=== PATIENT | female | born 1950 | race Caucasian/White ===

== ENCOUNTER 2019-03-12 06:51 | Day surgery (SDC) ==
--- NOTE | 2019-03-05 12:56 | EKG Report ---
Test Performed on : 03/05/2019 12:44:26 PM Test Reason : PAT Blood Pressure : / mmHG Vent. Rate : 083 BPM Atrial Rate : 083 BPM P-R Int : 168 ms QRS Dur : 086 ms QT Int : 390 ms P-R-T Axes : 065 -26 058 degrees QTc Int : 458 ms Sinus rhythm. with occasional premature ventricular complexes. Inferior infarct (cited on or before 27-MAY-2015) Anterior infarct (cited on or before 27-MAY-2015) Abnormal ECG When compared with ECG of 13-JUN-2017 10:43, premature ventricular complexes. are now present Confirmed by Janis Pichardo MD ([id number]) on 03/06/2019 12:02:13 PM
[2019-03-05 13:04] LABS: URINE SOURCE CLEAN CATCH
[2019-03-05 13:10] LABS: BASO# 0.02 X1000 (0.0-0.2); BASO% 0.4 % (0.0-0.8); EOS# 0.07 X1000 (0.0-0.7); EOS% 1.4 % (0.0-10.0); HEMATOCRIT 46.2 % (37.0-47.0); HEMOGLOBIN 14.7 g/dL (12.0-16.0); IMM GRAN# 0.02 X1000 (0.0-0.04); IMM GRAN% 0.4 % (0.0-0.5); LYMPH# 1.55 X1000 (1.2-3.4); LYMPH% 31.6 % (20.5-51.1); MCH 27.3 PG (27-31); MCHC 31.8 g/dL (33-37); MCV 85.7 FL (81-99); MONO# 0.34 X1000 (0.11-0.59); MONO% 6.9 % (1.7-9.3); MPV 9.2 FL (7.4-10.4); NEUT# 2.91 X1000 (1.4-6.5); NEUT% 59.3 % (42.2-75.2); PLT 323 X1000 (130-400); RBC 5.39 XMIL (4.2-5.4); RDW 14.7 % (11.5-14.5); WBC 4.91 X1000 (4.8-10.8)
[2019-03-05 13:11] LABS: BILIRUBIN URINE NEGATIVE (NEGATIVE); BLOOD URINE NEGATIVE (NEGATIVE); COLOR YELLOW; GLUCOSE URINE NEGATIVE (NEGATIVE); KETONE URINE TRACE mg/dL (NEGATIVE); LEUKOCYTES URINE SMALL (NEGATIVE); NITRITE URINE NEGATIVE (NEGATIVE); PH URINE 6.5; PROTEIN URINE NEGATIVE (NEGATIVE); TURBIDITY URINE CLEAR (CLEAR); UROBILINOGEN URINE NORMAL (NORMAL)
[2019-03-05 13:13] LABS: UR EPITHELIAL CELLS <10 /HPF (<10); URINE BACTERIA NEGATIVE /HPF; URINE RBC <10 /HPF (<10); URINE WBC <10 /HPF (<10)
[2019-03-05 13:14] LABS: INR 0.99; PROTIME 13.2 Seconds (11.0-16.0); PTT 24.3 Seconds (22.3-41.8)
[2019-03-05 13:16] LABS: HEMOGLOBIN A1C 5.5 % (4.8-6.0)
[2019-03-05 13:33] LABS: AGAP 13; BUN 16 mg/dL (8-22); CALCIUM 9.6 mg/dL (8.8-10.2); CHLORIDE 103 mmol/L (98-107); COSMO 288; CREATININE 0.8 mg/dL (0.5-0.9); ESTIMATED GFR > 60; GLUCOSE 107 mg/dL (70-104); POTASSIUM 3.9 mmol/L (3.5-5.1); SODIUM 144 mmol/L (136-145); TCO2 28 mmol/L (25-35)
[2019-03-12] MEDS ORDERED: KEFZOL 1 GM/D5W 1 GM/50 ML IVPB ONE (07:04)
[2019-03-12] MEDS ORDERED: PEPCID ONE (07:04)
[2019-03-12] MEDS ORDERED: COLACE ONE (07:04)
[2019-03-12] MEDS ORDERED: LYRICA ONE (07:04)
[2019-03-12] MEDS ORDERED: REGLAN ONE (07:04)
[2019-03-12] MEDS ORDERED: LR 1,000 ML ONE (07:05)
[2019-03-12] MEDS ORDERED: VERSED ONE (07:53)
[2019-03-12] MEDS ORDERED: DIPRIVAN 1% ONE (07:53)
[2019-03-12] MEDS ORDERED: FENTANYL ONE (07:53)
[2019-03-12] MEDS ORDERED: SODIUM CHLORIDE 0.9% ONE (08:00)
[2019-03-12] MEDS ORDERED: DURAMORPH ONE (08:00)
[2019-03-12] MEDS ORDERED: SENSORCAINE 0.25%/EPI 1:200,000 ONE (08:00)
[2019-03-12] MEDS ORDERED: TORADOL ONE (08:00)
[2019-03-12] MEDS ORDERED: VANCOMYCIN ONE (08:00)
[2019-03-12] MEDS ORDERED: EXPAREL 1.3% ONE (08:01)
[2019-03-12] MEDS ORDERED: NEOSPORIN G.U. IRRIGANT ONE (08:02)
[2019-03-12] MEDS: CYKLOKAPRON 1,000 MG/NS 2,000 MG/200 ML IVPB ONE ×2 (08:45→09:50)
[2019-03-12] MEDS ORDERED: EPHEDRINE ONE (09:03)
[2019-03-12] MEDS ORDERED: STERILE WATER INJ. ONE (09:04)
[2019-03-12 09:24] LABS: URINE SOURCE CATH
[2019-03-12 09:32] LABS: BILIRUBIN URINE NEGATIVE (NEGATIVE); BLOOD URINE NEGATIVE (NEGATIVE); COLOR YELLOW; GLUCOSE URINE NEGATIVE (NEGATIVE); KETONE URINE NEGATIVE (NEGATIVE); LEUKOCYTES URINE NEGATIVE (NEGATIVE); NITRITE URINE NEGATIVE (NEGATIVE); PROTEIN URINE NEGATIVE (NEGATIVE); SP GRAVITY URINE 1.023; TURBIDITY URINE CLEAR (CLEAR); UR EPITHELIAL CELLS <10 /HPF (<10); URINE BACTERIA NEGATIVE /HPF; URINE RBC <10 /HPF (<10); URINE WBC <10 /HPF (<10); UROBILINOGEN URINE 2 mg/dL (NORMAL)
[2019-03-12] MEDS ORDERED: NS 1,000 ML ONE (10:45)
[2019-03-12] MEDS ORDERED: OXY IR PO PRN (10:45)
[2019-03-12] MEDS ORDERED: MORPHINE IV PRN ×3 (10:45)
[2019-03-12] MEDS ORDERED: ZOFRAN ODT PO PRN (10:45)
[2019-03-12] MEDS ORDERED: ZOFRAN IV PRN (10:45)
--- NOTE | 2019-03-12 11:09 | Diag Imaging Result Doc PS360 ---
EXAM: KNEE 1-2 VIEWS-LEFT 03/12/2019 HISTORY: post op TECHNIQUE: Left knee two views COMMENT: There is a total knee arthroplasty. No evidence of fracture or other acute bony abnormality is present. IMPRESSION: Postsurgical change. Electronically signed by Usama Mercedes 03/12/2019 11:06 AM
[2019-03-12] MEDS: NS 1,000 ML IV SCH (12:10)
[2019-03-12] MEDS: ULTRAM PO SCH ×2 (12:10→16:13)
--- NOTE | 2019-03-12 12:35 | OPERATIVE NOTE ---
PROCEDURE DATE: 03/12/2019 PREOPERATIVE DIAGNOSIS: Degenerative joint disease, left knee. POSTOPERATIVE DIAGNOSIS: Degenerative joint disease, left knee. PROCEDURE PERFORMED: Left total knee replacement. SURGEON: Vrigil Raymundo MD PONDMAN: ZHEN Esteban. Mr. Riddle was necessary for proper retraction and manipulation of the leg during the case. ANESTHESIA: Spinal. COMPLICATION: None. PROCEDURE IN DETAIL: This 69-year-old female presents for a left total knee replacement. Risks, benefits, and no guarantees were discussed and she is willing to proceed. She was taken to the operative room and satisfactory anesthesia obtained. The left leg was prepped and draped in the usual sterile fashion. A time-out was taken to confirm operative site, procedure, and patient. The leg was wrapped with an Esmarch and tourniquet inflated to 350 mmHg. A midline incision was made over the front of the knee followed by a quadriceps tendon sparing arthrotomy. The patella was everted and resurfaced with freehand technique and sized to a 35 medialized dome patella. With the patella subluxed laterally, the knee was flexed, an intramedullary hole made in the distal femur, and the distal femoral cutting block secured in 5 degrees of valgus. Distal femoral cut was made and the femur sized to a [employer] size 4 femoral implant. The 4-in-1 block was secured and the anterior, posterior, and chamfer cuts sequentially made. Any osteophytes were debrided about the femur and the knee was flexed and a PCL retractor placed behind the tibia to protect the PCL and neurovascular bundle. The tibial cutting block was secured with extramedullary alignment and the tibial resection made. Flexion and extension gaps were equal at roughly an 8 mm spacer. The tibia was sized to a size 5 tibial tray. A trial reduction was performed with an 8 mm spacer with excellent range of motion and stability. The trial components were removed and the bony surfaces thoroughly irrigated with pulsatile lavage and then dried. Cement with 1 g vancomycin was utilized to cement a size 5 rotating platform tibial base plate, a size 4 left standard width femoral component with a cruciate-retaining design, and a 35 medialized dome patella. While the cement cured, the excess cement was removed with a [place] elevator, the joint capsule was injected with Exparel for pain management, and a Hemovac drain placed. After curing the cement, a size 8 mm thick, size 4 rotating platform cruciate-retaining polyethylene bearing was inserted into the tibial tray and the knee reduced. Final range of motion was 0 to 120 degrees with midline patellar tracking. The arthrotomy was copiously irrigated and then closed over the drain with #1 Vicryl in the arthrotomy, 2-0 Vicryl in the subcutaneous, and skin enrique on the skin. Sterile dressings were applied and the tourniquet released with good return of capillary blood flow. The patient was recovered from anesthesia and transferred to the recovery room in stable condition. No intraoperative complications were noted. Instrument count and sponge count was correct at the time of closure. cc: Jarrell Raymnudo MD
[2019-03-12] MEDS: TYLENOL PO SCH ×2 (14:29→20:54)
--- NOTE | 2019-03-12 15:31 | ORTHOPAEDICS PROGRESS NOTE ---
DATE: 03/12/2019 Ms. Nixon is seen status post total joint replacement. At the present time, she is afebrile with stable vital signs. Her bandage is clean and dry. She is comfortable currently. Postop knee x- ray showed good alignment of her prosthesis. She appears to be motor and sensory intact. We will plan on continuing to mobilize her and discharge her home when she is independent with transfers. She is currently stable at this point. cc: Jarrell Raymundo MD
[2019-03-12] MEDS: KEFZOL 1 GM/D5W 1 GM/50 ML IVPB IV SCH (16:13)
[2019-03-12] MEDS: PERIDEX MT SCH (20:52)
[2019-03-12] MEDS: COLACE PO SCH (20:54)
[2019-03-12] MEDS: OXY IR PO PRN (20:55)
[2019-03-12] MEDS ORDERED: CELEBREX PO SCH (21:00)
[2019-03-13] MEDS: OXY IR PO PRN (00:34)
[2019-03-13] MEDS: KEFZOL 1 GM/D5W 1 GM/50 ML IVPB IV SCH (00:35)
[2019-03-13] MEDS: NS 1,000 ML IV SCH (00:36)
[2019-03-13] MEDS: TYLENOL PO SCH ×2 (03:05→08:49)
[2019-03-13] MEDS: ULTRAM PO SCH ×2 (03:05→10:02)
[2019-03-13 05:51] LABS: HEMATOCRIT 34.6 % (37.0-47.0); HEMOGLOBIN 10.6 g/dL (12.0-16.0)
[2019-03-13 06:37] LABS: AGAP 8; BUN 12 mg/dL (8-22); CALCIUM 8.1 mg/dL (8.8-10.2); CHLORIDE 105 mmol/L (98-107); COSMO 280; CREATININE 0.6 mg/dL (0.5-0.9); ESTIMATED GFR > 60; GLUCOSE 105 mg/dL (70-104); POTASSIUM 4.3 mmol/L (3.5-5.1); SODIUM 140 mmol/L (136-145); TCO2 27 mmol/L (25-35)
--- NOTE | 2019-03-13 07:28 | ORTHOPAEDICS PROGRESS NOTE ---
DATE: 03/13/2019 Ms. Nixon is seen status post total knee replacement. At the present time, she is afebrile with stable vital signs. Her leg is clean and dry with no signs of infection or DVT. She is mobilizing well. She is discharged home today on her usual medicines including [place] as needed for pain, aspirin for DVT prophylaxis and Bactrim for wound prophylaxis. We will see her back in roughly 10 to 12 days. She is to return to our office for any worsening signs or symptoms. cc: Jarrell Raymundo MD
[2019-03-13 08:26] VITALS: BP 120/77
[2019-03-13] MEDS: COLACE PO SCH (08:49)
[2019-03-13] MEDS: PERIDEX MT SCH (08:49)
[2019-03-13] MEDS ORDERED: PEPCID PO SCH (09:00)
[2019-03-13] MEDS ORDERED: ASPIRIN PO SCH (09:00)
== END 2019-03-13 11:47 | disposition home or self-care (01) ==
LOC: OPS 06:51 → 4N 06:51 → PAT 06:51 → OPS 03-13 11:47
PROVIDERS: ATTEND Orthopaedic Surgery Adult Reconstructive Orthopaedic Surgery